=== PATIENT | female | born 1980 | race Caucasian/White ===

== ENCOUNTER 2018-07-05 14:30 | Inpatient (IN) | payer MEDICAID ==
[~2018-07-05] VITALS: Ht 170.2 cm; Wt 79.8 kg
[~2018-07-05 14:30] MED LIST: ONDA4TAB12 PO; PANT20TA2 PO; PHEN-716 PO
[2018-07-05 15:43] LABS: BASOPHILS # (AUTO) 0.1 X10'3 (0-0.2); EOSINOPHILS # (AUTO) 0.1 X10'3 (0-0.9); EOSINOPHILS % (AUTO) 1.7 % (0-6); HEMATOCRIT 47.2 % (35.0-45.0); HEMOGLOBIN 15.5 g/dl (12.0-16.0); LYMPHOCYTES # (AUTO) 1.9 X10'3 (1.1-4.8); MEAN CORPUSCULAR HGB CONC 32.8 g/dL (33.0-36.5); MEAN CORPUSCULAR VOLUME 94.3 FL (78-98); MEAN PLATELET VOLUME 8.4 FL (7.4-10.4); MONOCYTES # (AUTO) 0.4 X10'3 (0-0.9); MONOCYTES % (AUTO) 6.3 % (2-12); NEUTROPHILS # (AUTO) 4.6 X10'3 (1.8-7.7); PLATELET COUNT 282 X10'3 (140-440); RED CELL DISTRIBUTION WIDTH 12.6 % (11.5-14.5); WHITE BLOOD COUNT 7.1 X10'3 (4.5-11.0)
[2018-07-05 15:58] LABS: ALANINE AMINOTRANSFERASE 22 U/L (12-78); ALBUMIN 4.1 G/DL (3.4-5.0); ALBUMIN/GLOBULIN RATIO 1.2 (1.1-1.5); ALKALINE PHOSPHATASE 59 IU/L (46-116); ANION GAP 12 (8-16); ASPARTATE AMINO TRANSFERASE 27 U/L (10-37); BILIRUBIN,TOTAL 0.6 MG/DL (0.1-1.0); BLOOD UREA NITROGEN 7 MG/DL (7-18); BUN/CREATININE RATIO 9.9 (6.6-38.0); CALCIUM 9.1 MG/DL (8.5-10.1); CHLORIDE 102 MMOL/L (99-107); CREATININE 0.71 MG/DL (0.40-0.90); GLUCOSE 93 MG/DL (70-104); POTASSIUM 3.9 MMOL/L (3.5-5.1); SODIUM 139 MMOL/L (135-145); TOTAL CARBON DIOXIDE 25.3 MMOL/L (24-32); TOTAL PROTEIN 7.4 G/DL (6.4-8.2); eGFR > 90 ML/MIN
[2018-07-05 15:59] LABS: PARTIAL THROMBOPLASTIN TIME 26 SECONDS (22-32); PROTHROMBIN TIME 10.4 SECONDS (9.0-12.0)
[2018-07-05] MEDS ORDERED: NO HOME MEDS (16:46)
[2018-07-05 17:09] LABS: ETHANOL 0.028 GM/DL (0.0-0.010)
[2018-07-05] MEDS ORDERED: acetaminophen 325mg tablet PO ONE (17:15)
[2018-07-05 17:17] LABS: D-DIMER < 0.19 MG/L FEU (0-0.50)
[2018-07-05] MEDS ORDERED: acetaminophen 325mg tablet PO PRN (18:50)
[2018-07-05] MEDS ORDERED: potassium Cl 40MEQ/NS 500ml 500 ML IV PRN ×2 (18:50)
[2018-07-05] MEDS ORDERED: potassium Cl 20 mEq SR tablet PO PRN ×2 (18:50)
[2018-07-05] MEDS ORDERED: magnesium Cl slow-release 64mg tablet PO PRN (18:50)
[2018-07-05] MEDS ORDERED: mag hydrox/Alum hydrox/simeth 30ml oral suspension PO PRN (18:50)
[2018-07-05] MEDS ORDERED: magnesium hydroxide 30ml (MOM) UD suspension PO PRN (18:50)
[2018-07-05] MEDS ORDERED: ondansetron/PF 4mg/2ml inj IV PRN (18:50)
[2018-07-05] MEDS ORDERED: magnesium 2GM in 50ml NS 50 ML IV PRN (18:50)
[2018-07-05] MEDS ORDERED: magnesium 4gm in 100ml NS 100 ML IV PRN (18:50)
[2018-07-05 18:56] LABS: URINE HCG NEGATIVE (NEG)
[2018-07-05 19:07] LABS: URINE AMPHETAMINE SCREEN NEGATIVE (Neg); URINE BARBITUATE SCREEN NEGATIVE (Neg); URINE BENZODIAZEPINES SCREEN NEGATIVE (Neg); URINE CANNABINOID SCREEN NEGATIVE (Neg); URINE COCAINE SCREEN NEGATIVE (Neg); URINE METHADONE SCREEN NEGATIVE (Neg); URINE OPIATE SCREEN NEGATIVE (Neg); URINE PHENCYCLIDINE SCREEN NEGATIVE (Neg)
[2018-07-05] MEDS: aspirin 81mg tab.chew PO SCH (19:20)
[2018-07-05] MEDS: normal saline 1000ml 1,000 ML IV SCH (19:20)
[2018-07-05] MEDS: tirofiban 5mg in NS 100mL 100 ML IV SCH (19:44)
[2018-07-05] MEDS: carVEDilol 3.125mg tablet PO SCH (19:46)
[2018-07-05] MEDS: enoxaparin 80mg/0.8ml syringe SUBCUT SCH (19:46)
[2018-07-05] MEDS ORDERED: ibuprofen tablet 400 MG TABLET PO ONE (20:55)
[2018-07-06] VITALS (11 sets, daily range): BP systolic 104–129; BP diastolic 52–78
[2018-07-06 02:56] LABS: BASOPHILS % (AUTO) 0.7 % (0-1); EOSINOPHILS # (AUTO) 0.1 X10'3 (0-0.9); EOSINOPHILS % (AUTO) 2.1 % (0-6); HEMATOCRIT 43.3 % (35.0-45.0); HEMOGLOBIN 14.4 g/dl (12.0-16.0); LYMPHOCYTES # (AUTO) 2.5 X10'3 (1.1-4.8); MEAN CORPUSCULAR HEMOGLOBIN 31.6 PG (27.0-31.0); MEAN CORPUSCULAR HGB CONC 33.3 g/dL (33.0-36.5); MEAN CORPUSCULAR VOLUME 94.8 FL (78-98); MEAN PLATELET VOLUME 8.9 FL (7.4-10.4); MONOCYTES # (AUTO) 0.5 X10'3 (0-0.9); MONOCYTES % (AUTO) 7.5 % (2-12); NEUTROPHILS # (AUTO) 3.5 X10'3 (1.8-7.7); NEUTROPHILS % (AUTO) 51.7 % (42-75); PLATELET COUNT 235 X10'3 (140-440); RED BLOOD COUNT 4.57 X10'6 (4.20-5.60); RED CELL DISTRIBUTION WIDTH 12.4 % (11.5-14.5); WHITE BLOOD COUNT 6.6 X10'3 (4.5-11.0)
[2018-07-06 03:01] LABS: ALANINE AMINOTRANSFERASE 20 U/L (12-78); ALBUMIN 3.4 G/DL (3.4-5.0); ALBUMIN/GLOBULIN RATIO 1.3 (1.1-1.5); ALKALINE PHOSPHATASE 55 IU/L (46-116); ANION GAP 9 (8-16); ASPARTATE AMINO TRANSFERASE 23 U/L (10-37); BILIRUBIN,TOTAL 0.3 MG/DL (0.1-1.0); BLOOD UREA NITROGEN 8 MG/DL (7-18); BUN/CREATININE RATIO 11.3 (6.6-38.0); CALCIUM 8.3 MG/DL (8.5-10.1); CHLORIDE 105 MMOL/L (99-107); CREATININE 0.71 MG/DL (0.40-0.90); GLUCOSE 125 MG/DL (70-104); POTASSIUM 3.6 MMOL/L (3.5-5.1); SODIUM 139 MMOL/L (135-145); TOTAL CARBON DIOXIDE 25.4 MMOL/L (24-32); eGFR > 90 ML/MIN
[2018-07-06 03:05] LABS: MAGNESIUM 2.1 MG/DL (1.5-2.4)
[2018-07-06] MEDS: tirofiban 5mg in NS 100mL 100 ML IV SCH ×2 (03:10→08:37)
[2018-07-06 07:30] LABS: CHOLESTEROL 124 MG/DL (0-200); HDL CHOLESTEROL 31 MG/DL (35-60); LDL CHOLESTEROL 75 MG/DL (50-100); TRIGLYCERIDES 325 MG/DL (20-135)
--- NOTE | 2018-07-06 07:55 | NUR ---
Patient in room ED 9. I have received report from Tracy PEPPER and had the opportunity to ask questions,
[2018-07-06] MEDS: K and/or MAG REPLACEMENT MC SCH (08:00)
[2018-07-06] MEDS: enoxaparin 80mg/0.8ml syringe SUBCUT SCH (08:00)
--- NOTE | 2018-07-06 08:15 | NUR ---
Patient arrived from the ED, alert and oriented, vital signs stable. Ambulatory. Oriented to room and call light. Beamster Jurgen at bedside to take patient to fish farm laborer.
[2018-07-06] MEDS ORDERED: fentaNYL/PF 50MCG/1 ML 2ML syringe ONE ×2 (08:25→09:38)
[2018-07-06] MEDS ORDERED: LIDOcaine 1% (10mg/ml)w/preservative injection 20ml MDV ONE (08:25)
[2018-07-06] MEDS ORDERED: iohexol 350MG/ML 100ml bottle IV ONE ×3 (08:25→18:10)
[2018-07-06] MEDS ORDERED: midazolam 2 mg/2 ml injection ONE ×2 (08:25→09:38)
[2018-07-06] MEDS ORDERED: heparin 1,000unit/ml 10ml vial 10 ML ONE (08:53)
[2018-07-06] MEDS ORDERED: nitroGLYCERIN-Tridil 50MG/D5W 250 ML IV ONE (08:53)
[2018-07-06] MEDS ORDERED: verapamil 2.5 mg/ml inj IV ONE (08:53)
--- NOTE | 2018-07-06 10:00 | NUR ---
Patient returned from catheterization laboratory technician, with right radial access site with Vasc Band in place. Pulses palpable. Will continue to monitor patient closely.
[2018-07-06] MEDS ORDERED: proCHLORperazine 10 MG/2 ml inj IV PRN (10:15)
[2018-07-06] MEDS ORDERED: OXAZEpam 15mg capsule PO PRN (10:15)
[2018-07-06] MEDS ORDERED: clopidogrel 300mg tablet PO ONE (10:15)
[2018-07-06] MEDS ORDERED: aspirin 81mg tablet.DR PO ONE (10:15)
[2018-07-06] MEDS ORDERED: nitroGLYCERIN 0.4mg SUBLingual tab SL PRN (10:15)
--- NOTE | 2018-07-06 10:18 | NUR ---
RECEIVED NEW ORDERS FROM DR. BRUMFIELD: PATIENT STABLE TO DISCHARGE HOME @ 1500 F/U WITH OCTAVIANO IN 2 WEEKS, ASPIRIN 81MG NOW AND QD, PLAVIX 300MG PO NOW, THEN 75MG QD. WILL CONTINUE TO MONITOR
--- NOTE | 2018-07-06 10:34 | NUR ---
PAGER ID: [phone] MESSAGE: [phone]: SOLAR - returned from culture media laboratory assistant. hamida Gordon pt stable to d/c @ 1500 today. are you in agreement? nurse Sheridan patel [phone]
[2018-07-06] MEDS: atorvastatin 20mg tablet PO SCH (10:51)
[2018-07-06] MEDS: carVEDilol 3.125mg tablet PO SCH ×2 (10:52→20:32)
[2018-07-06] MEDS: aspirin 81mg tab.chew PO SCH (10:52)
[2018-07-06] MEDS: HYDROcodone/acetaminophen 5mg/325mg tablet PO PRN ×3 (12:11→23:16)
--- NOTE | 2018-07-06 14:46 | NUR ---
Patient complaining of chest pressure 6/10 and pain radiating to her left arm. Paged Dr Robertson. Getting stat EKG now.
[2018-07-06] MEDS: normal saline 1000ml 1,000 ML IV SCH (14:47)
--- NOTE | 2018-07-06 14:55 | NUR ---
EKG showed to Dr Robertson, normal sinus rhythm. She did not want to increase any pain medication orders at this time.
--- NOTE | 2018-07-06 15:30 | NUR ---
Patient asking to stay overnight to be monitored. She feels lightheaded from the new medications and is nervous about discharging. Dr Robertson notified and stated she can stay one night for observation.
--- NOTE | 2018-07-06 17:30 | NUR ---
Patient's right wrist Vasc Band has fully deflated and there is no evidence of active bleeding. Site looks great. Sterile gauze and tegaderm applied.
--- NOTE | 2018-07-06 18:10 | NUR ---
Patient in room MED 315. I have received report from Sheridan and had the opportunity to ask questions and assume patient care.
--- NOTE | 2018-07-06 18:55 | NUR ---
Problems reprioritized. Patient report given, questions answered & plan of care reviewed with Maldonado RN.
[2018-07-07 02:00] VITALS: BP 98/57
[2018-07-07 05:40] LABS: BASOPHILS % (AUTO) 0.4 % (0-1); EOSINOPHILS # (AUTO) 0.1 X10'3 (0-0.9); EOSINOPHILS % (AUTO) 2.3 % (0-6); HEMATOCRIT 40.3 % (35.0-45.0); HEMOGLOBIN 13.8 g/dl (12.0-16.0); LYMPHOCYTES % (AUTO) 30.9 % (21-51); MEAN CORPUSCULAR HEMOGLOBIN 32.5 PG (27.0-31.0); MEAN CORPUSCULAR HGB CONC 34.3 g/dL (33.0-36.5); MEAN CORPUSCULAR VOLUME 94.8 FL (78-98); MEAN PLATELET VOLUME 9.1 FL (7.4-10.4); MONOCYTES # (AUTO) 0.4 X10'3 (0-0.9); MONOCYTES % (AUTO) 6.6 % (2-12); NEUTROPHILS # (AUTO) 3.8 X10'3 (1.8-7.7); NEUTROPHILS % (AUTO) 59.8 % (42-75); PLATELET COUNT 216 X10'3 (140-440); RED BLOOD COUNT 4.25 X10'6 (4.20-5.60); RED CELL DISTRIBUTION WIDTH 12.3 % (11.5-14.5); WHITE BLOOD COUNT 6.3 X10'3 (4.5-11.0)
[2018-07-07 05:47] LABS: ALANINE AMINOTRANSFERASE 18 U/L (12-78); ALBUMIN 3.1 G/DL (3.4-5.0); ALBUMIN/GLOBULIN RATIO 1.2 (1.1-1.5); ALKALINE PHOSPHATASE 54 IU/L (46-116); ANION GAP 11 (8-16); ASPARTATE AMINO TRANSFERASE 14 U/L (10-37); BILIRUBIN,TOTAL 0.3 MG/DL (0.1-1.0); BLOOD UREA NITROGEN 6 MG/DL (7-18); BUN/CREATININE RATIO 9.7 (6.6-38.0); CALCIUM 7.9 MG/DL (8.5-10.1); CHLORIDE 105 MMOL/L (99-107); CREATININE 0.62 MG/DL (0.40-0.90); MAGNESIUM 1.9 MG/DL (1.5-2.4); SODIUM 138 MMOL/L (135-145); TOTAL PROTEIN 5.7 G/DL (6.4-8.2); eGFR > 90 ML/MIN
[2018-07-07 05:49] LABS: GLUCOSE 103 MG/DL (70-104); POTASSIUM 3.7 MMOL/L (3.5-5.1)
[2018-07-07 06:00] VITALS: BP 104/60
--- NOTE | 2018-07-07 06:30 | NUR ---
Patient in room MED 315. I have received report from Milad PEPPER and had the opportunity to ask questions and assume patient care.
[2018-07-07] MEDS: K and/or MAG REPLACEMENT MC SCH (08:00)
[2018-07-07] MEDS ORDERED: clopidogrel 75mg tablet PO SCH (08:00)
[2018-07-07] MEDS ORDERED: aspirin 81mg tablet.DR PO SCH (08:00)
[2018-07-07] MEDS: atorvastatin 20mg tablet PO SCH (08:12)
[2018-07-07] MEDS: aspirin 81mg tab.chew PO SCH (08:14)
[2018-07-07] MEDS: carVEDilol 3.125mg tablet PO SCH (09:11)
[2018-07-07] MEDS ORDERED: ATOR20TA66 PO (09:23)
[2018-07-07] MEDS ORDERED: ASPI-1265 PO (09:23)
[2018-07-07] MEDS ORDERED: CLOP75TA35 PO (09:23)
[2018-07-07] MEDS ORDERED: COR3.125T PO (09:23)
--- NOTE | 2018-07-07 09:53 | NUR ---
NEW MEDICATION PRESCRIPTIONS CALLED INTO [facility].
--- NOTE | 2018-07-07 10:29 | NUR ---
discharge education provided, and all questions answered. pt removed from shelter monitor and awaiting ride.
[2018-07-07] MEDS: normal saline 1000ml 1,000 ML IV SCH (10:47)
--- NOTE | 2018-07-07 11:45 | NUR ---
pt's IV removed; cannula intact. pt wheeled to lobby with all belongings.
== END 2018-07-07 11:45 | disposition home or self-care (01) | DRG 190 ==
LOC: ER 14:31 → ED HOLD 18:47 → MED 3N 07-06 08:17
PROVIDERS: ADMIT Internal Medicine; ATTEND Internal Medicine
PROC: 4A023N7 Measurement of Cardiac Sampling and Pressure, Left Heart, Percutaneous Approach (ICD-10-PCS; principal; 2018-07-06)
PROC: B2111ZZ Fluoroscopy of Multiple Coronary Arteries using Low Osmolar Contrast (ICD-10-PCS; 2018-07-06)
PROC: B2151ZZ Fluoroscopy of Left Heart using Low Osmolar Contrast (ICD-10-PCS; 2018-07-06)
PROC: B32T1ZZ Computerized Tomography (CT Scan) of Left Pulmonary Artery using Low Osmolar Contrast (ICD-10-PCS; 2018-07-06)
PROC: B3201ZZ Computerized Tomography (CT Scan) of Thoracic Aorta using Low Osmolar Contrast (ICD-10-PCS; 2018-07-06)
PROC: B32S1ZZ Computerized Tomography (CT Scan) of Right Pulmonary Artery using Low Osmolar Contrast (ICD-10-PCS; 2018-07-06)
DX: I21.4 Non-ST elevation (NSTEMI) myocardial infarction (principal); E78.1 Pure hyperglyceridemia; R21 Rash and other nonspecific skin eruption; Z98.891 History of uterine scar from previous surgery; Z87.440 Personal history of urinary (tract) infections; Z79.899 Other long term (current) drug therapy; Z72.89 Other problems related to lifestyle
CPT/HCPCS: 36415; 71045; 71275; 80053; 80061; 80305; 80320; 81025; 83735; 84484; 85025; 85379; 85610; 85730; 87070; 93005; 93306; 93458; 99152; 99153; 99285; A4620; A6257; C1725; C1769; G0378; J1644; J1650; J2001; J2250; J3010; J3246; J3490; J7030; Q9967

== ENCOUNTER 2018-10-11 21:23 | Emergency (ER) | payer MEDICAID ==
[~2018-10-11] VITALS: Ht 172.7 cm; Wt 70.4 kg
[~2018-10-11 21:23] MED LIST changes: +ASPI-1265 PO; +ATOR20TA66 PO; +CLOP75TA35 PO; +COR3.125T PO; -ONDA4TAB12 PO; -PANT20TA2 PO; -PHEN-716 PO
[2018-10-11 22:07] LABS: BASOPHILS % (AUTO) 0.5 % (0-1); EOSINOPHILS # (AUTO) 0.1 X10'3 (0-0.9); EOSINOPHILS % (AUTO) 0.9 % (0-6); HEMATOCRIT 41.3 % (35.0-45.0); HEMOGLOBIN 14.3 g/dl (12.0-16.0); LYMPHOCYTES # (AUTO) 1.9 X10'3 (1.1-4.8); LYMPHOCYTES % (AUTO) 26.8 % (21-51); MEAN CORPUSCULAR HEMOGLOBIN 32.6 PG (27.0-31.0); MEAN CORPUSCULAR HGB CONC 34.6 g/dL (33.0-36.5); MEAN CORPUSCULAR VOLUME 94.1 FL (78-98); MEAN PLATELET VOLUME 8.9 FL (7.4-10.4); MONOCYTES # (AUTO) 0.5 X10'3 (0-0.9); MONOCYTES % (AUTO) 7.4 % (2-12); NEUTROPHILS # (AUTO) 4.7 X10'3 (1.8-7.7); NEUTROPHILS % (AUTO) 64.4 % (42-75); PLATELET COUNT 201 X10'3 (140-440); RED BLOOD COUNT 4.38 X10'6 (4.20-5.60); RED CELL DISTRIBUTION WIDTH 12.8 % (11.5-14.5); WHITE BLOOD COUNT 7.3 X10'3 (4.5-11.0)
[2018-10-11 22:18] LABS: ALANINE AMINOTRANSFERASE 34 U/L (12-78); ALBUMIN 3.9 G/DL (3.4-5.0); ALBUMIN/GLOBULIN RATIO 1.3 (1.1-1.5); ALKALINE PHOSPHATASE 59 IU/L (46-116); ANION GAP 7 (8-16); ASPARTATE AMINO TRANSFERASE 17 U/L (10-37); BILIRUBIN,TOTAL 0.6 MG/DL (0.1-1.0); BLOOD UREA NITROGEN 8 MG/DL (7-18); BUN/CREATININE RATIO 10.5 (6.6-38.0); CALCIUM 8.7 MG/DL (8.5-10.1); CHLORIDE 104 MMOL/L (99-107); CREATININE 0.76 MG/DL (0.40-0.90); GLUCOSE 88 MG/DL (70-104); POTASSIUM 3.3 MMOL/L (3.5-5.1); SODIUM 140 MMOL/L (135-145); TOTAL CARBON DIOXIDE 29.2 MMOL/L (24-32); eGFR 85 ML/MIN
[2018-10-11 22:19] LABS: PARTIAL THROMBOPLASTIN TIME 27 SECONDS (22-32)
[2018-10-11] MEDS ORDERED: potassium Cl oral solution 20 MEQ/15 ML PO ONE (22:50)
[2018-10-11 23:23] LABS: URINE HCG NEGATIVE (NEG)
[2018-10-11 23:25] LABS: CLARITY,URINE SLIGHTLY CLOUDY (Clear); COLOR,URINE YELLOW (Yellow); GLUCOSE, URINE NEGATIVE (Neg); KETONES,URINE NEGATIVE (Neg); LEUKOCYTE ESTERASE ,URINE NEGATIVE (Neg); NITRITES, URINE NEGATIVE (Neg); OCCULT BLOOD,URINE TRACE-INTACT (Neg); PH,URINE 6.5 (4.8-8.0); PROTEIN,URINE NEGATIVE (Neg); UROBILINOGEN,URINE 0.2 E.U/dL (0.2-1.0)
[2018-10-11 23:27] LABS: UA COLLECTION TYPE VOIDED
[2018-10-11 23:34] LABS: BACTERIA,URINE FEW /HPF (Neg); RBC,URINE 0-2 /HPF (0-2); SQUAMOUS EPITHELIAL CELL,UR FEW /LPF (FEW); WBC,URINE 0-4 /HPF (0-4)
[2018-10-11 23:57] VITALS: BP 108/71
== END 2018-10-11 23:59 | disposition home or self-care (01) ==
LOC: ER 21:23
DX: R07.89 Other chest pain (principal); R53.1 Weakness; I25.10 Atherosclerotic heart disease of native coronary artery without angina pectoris; I25.2 Old myocardial infarction; Z79.82 Long term (current) use of aspirin; Z79.899 Other long term (current) drug therapy; Z98.890 Other specified postprocedural states
CPT/HCPCS: 36415; 71045; 80053; 81001; 81025; 84443; 84484; 85025; 85610; 85730; 93005; 99284

== ENCOUNTER 2019-05-10 14:11 | Emergency (ER) | payer MEDICAID ==
[~2019-05-10] VITALS: Ht 172.7 cm; Wt 73.0 kg
[2019-05-10 15:06] LABS: BASOPHILS % (AUTO) 0.5 % (0-1); EOSINOPHILS % (AUTO) 0.3 % (0-6); HEMATOCRIT 39.2 % (35.0-45.0); HEMOGLOBIN 13.5 g/dl (12.0-16.0); LYMPHOCYTES # (AUTO) 1.4 X10'3 (1.1-4.8); LYMPHOCYTES % (AUTO) 26.1 % (21-51); MEAN CORPUSCULAR HEMOGLOBIN 32.4 PG (27.0-31.0); MEAN CORPUSCULAR HGB CONC 34.3 g/dL (33.0-36.5); MEAN CORPUSCULAR VOLUME 94.5 FL (78-98); MEAN PLATELET VOLUME 8.5 FL (7.4-10.4); MONOCYTES # (AUTO) 0.3 X10'3 (0-0.9); NEUTROPHILS # (AUTO) 3.5 X10'3 (1.8-7.7); NEUTROPHILS % (AUTO) 67.1 % (42-75); PLATELET COUNT 217 X10'3 (140-440); RED BLOOD COUNT 4.15 X10'6 (4.20-5.60); RED CELL DISTRIBUTION WIDTH 13.5 % (11.5-14.5); WHITE BLOOD COUNT 5.3 X10'3 (4.5-11.0)
[2019-05-10 15:24] LABS: ALANINE AMINOTRANSFERASE 19 U/L (12-78); ALBUMIN/GLOBULIN RATIO 1.4 (1.1-1.5); ALKALINE PHOSPHATASE 52 IU/L (46-116); ANION GAP 4 (8-16); ASPARTATE AMINO TRANSFERASE 14 U/L (10-37); BILIRUBIN,TOTAL 0.7 MG/DL (0.1-1.0); BLOOD UREA NITROGEN 8 MG/DL (7-18); BUN/CREATININE RATIO 9.6 (6.6-38.0); CHLORIDE 105 MMOL/L (99-107); CREATININE 0.83 MG/DL (0.40-0.90); GLUCOSE 80 MG/DL (70-104); POTASSIUM 3.9 MMOL/L (3.5-5.1); SODIUM 140 MMOL/L (135-145); TOTAL CARBON DIOXIDE 30.7 MMOL/L (24-32); TOTAL PROTEIN 6.9 G/DL (6.4-8.2); eGFR 76 ML/MIN
[2019-05-10 19:01] VITALS: BP 108/60
== END 2019-05-10 19:02 | disposition home or self-care (01) ==
LOC: ER 14:12
DX: R07.89 Other chest pain (principal); I25.10 Atherosclerotic heart disease of native coronary artery without angina pectoris; I25.2 Old myocardial infarction; Z98.890 Other specified postprocedural states; Z79.82 Long term (current) use of aspirin; Z79.899 Other long term (current) drug therapy; Z95.5 Presence of coronary angioplasty implant and graft
CPT/HCPCS: 36415; 80053; 84484; 85025; 93005; 99284

== ENCOUNTER 2019-09-04 15:35 | Emergency (ER) | payer MEDICAID ==
[~2019-09-04] VITALS: Ht 162.6 cm; Wt 74.0 kg
[2019-09-04 16:13] LABS: BASOPHILS % (AUTO) 0.4 % (0-1); EOSINOPHILS # (AUTO) 0.1 X10'3 (0-0.9); HEMATOCRIT 42.4 % (35.0-45.0); HEMOGLOBIN 14.4 g/dl (12.0-16.0); LYMPHOCYTES # (AUTO) 1.4 X10'3 (1.1-4.8); LYMPHOCYTES % (AUTO) 26.4 % (21-51); MEAN CORPUSCULAR HEMOGLOBIN 32.1 PG (27.0-31.0); MEAN CORPUSCULAR HGB CONC 33.9 g/dL (33.0-36.5); MEAN CORPUSCULAR VOLUME 94.5 FL (78-98); MEAN PLATELET VOLUME 8.5 FL (7.4-10.4); MONOCYTES # (AUTO) 0.3 X10'3 (0-0.9); MONOCYTES % (AUTO) 6.5 % (2-12); NEUTROPHILS # (AUTO) 3.5 X10'3 (1.8-7.7); NEUTROPHILS % (AUTO) 65.7 % (42-75); PLATELET COUNT 211 X10'3 (140-440); RED BLOOD COUNT 4.49 X10'6 (4.20-5.60); RED CELL DISTRIBUTION WIDTH 13.1 % (11.5-14.5); WHITE BLOOD COUNT 5.3 X10'3 (4.5-11.0)
[2019-09-04 16:26] LABS: PARTIAL THROMBOPLASTIN TIME 25 SECONDS (22-32)
[2019-09-04 16:30] LABS: ALANINE AMINOTRANSFERASE 17 U/L (12-78); ALBUMIN 3.8 G/DL (3.4-5.0); ALBUMIN/GLOBULIN RATIO 1.3 (1.1-1.5); ALKALINE PHOSPHATASE 51 IU/L (46-116); ANION GAP 6 (8-16); ASPARTATE AMINO TRANSFERASE 14 U/L (10-37); BILIRUBIN,TOTAL 0.4 MG/DL (0.1-1.0); BLOOD UREA NITROGEN 10 MG/DL (7-18); CALCIUM 9.3 MG/DL (8.5-10.1); CHLORIDE 107 MMOL/L (99-107); CREATININE 0.83 MG/DL (0.40-0.90); GLUCOSE 121 MG/DL (70-104); POTASSIUM 3.8 MMOL/L (3.5-5.1); SODIUM 142 MMOL/L (135-145); TOTAL CARBON DIOXIDE 29.1 MMOL/L (24-32); TOTAL PROTEIN 6.8 G/DL (6.4-8.2); eGFR 76 ML/MIN
[2019-09-04 18:55] VITALS: BP 117/72
[2019-09-04] MEDS ORDERED: acetaminophen 325mg tablet PO ONE (19:05)
== END 2019-09-04 19:37 | disposition home or self-care (01) ==
LOC: ER 15:36
DX: R07.9 Chest pain, unspecified (principal); R06.02 Shortness of breath; I25.10 Atherosclerotic heart disease of native coronary artery without angina pectoris; I25.2 Old myocardial infarction; Z87.440 Personal history of urinary (tract) infections; Z98.890 Other specified postprocedural states; Z79.82 Long term (current) use of aspirin; Z79.899 Other long term (current) drug therapy
CPT/HCPCS: 36415; 71045; 80053; 84484; 85025; 85610; 85730; 93005; 99285

== ENCOUNTER 2021-03-09 08:17 | Emergency (ER) | payer MEDICAID ==
[~2021-03-09] VITALS: Ht 172.7 cm; Wt 77.3 kg
[~2021-03-09 08:17] MED LIST changes: +CLOP75TA34 PO; -CLOP75TA35 PO
[2021-03-09 09:02] LABS: BASOPHILS % (AUTO) 0.6 % (0-1); EOSINOPHILS % (AUTO) 0.6 % (0-6); HEMATOCRIT 42.6 % (35.0-45.0); HEMOGLOBIN 14.7 g/dl (12.0-16.0); LYMPHOCYTES # (AUTO) 1.6 X10'3 (1.1-4.8); MEAN CORPUSCULAR HEMOGLOBIN 32.5 PG (27.0-31.0); MEAN CORPUSCULAR HGB CONC 34.6 g/dL (33.0-36.5); MEAN CORPUSCULAR VOLUME 94.1 FL (78-98); MEAN PLATELET VOLUME 8.2 FL (7.4-10.4); MONOCYTES # (AUTO) 0.5 X10'3 (0-0.9); MONOCYTES % (AUTO) 6.2 % (2-12); NEUTROPHILS # (AUTO) 5.5 X10'3 (1.8-7.7); NEUTROPHILS % (AUTO) 71.6 % (42-75); PLATELET COUNT 216 X10'3 (140-440); RED BLOOD COUNT 4.53 X10'6 (4.20-5.60); RED CELL DISTRIBUTION WIDTH 13.2 % (11.5-14.5); WHITE BLOOD COUNT 7.7 X10'3 (4.5-11.0)
[2021-03-09 09:53] LABS: ANION GAP 6 (8-16); BILIRUBIN,TOTAL 0.7 MG/DL (0.1-1.0); BLOOD UREA NITROGEN 11 MG/DL (7-18); BUN/CREATININE RATIO 12.9 (6.6-38.0); CALCIUM 8.7 MG/DL (8.5-10.1); CHLORIDE 106 MMOL/L (99-107); CREATININE 0.85 MG/DL (0.40-0.90); GLUCOSE 98 MG/DL (70-104); POTASSIUM 3.8 MMOL/L (3.5-5.1); SODIUM 140 MMOL/L (135-145); TOTAL CARBON DIOXIDE 27.6 MMOL/L (24-32); TOTAL PROTEIN 6.8 G/DL (6.4-8.2); eGFR 73 ML/MIN
[2021-03-09 09:54] LABS: ALANINE AMINOTRANSFERASE 24 U/L (12-78); ALBUMIN 3.7 G/DL (3.4-5.0); ALBUMIN/GLOBULIN RATIO 1.2 (1.1-1.5); ALKALINE PHOSPHATASE 63 IU/L (46-116); ASPARTATE AMINO TRANSFERASE 16 U/L (10-37)
[2021-03-09] MEDS ORDERED: NITR0.4T51 SL (11:42)
[2021-03-09 12:19] VITALS: BP 113/65
== END 2021-03-09 12:21 | disposition home or self-care (01) ==
LOC: ER 08:18
DX: I24.9 Acute ischemic heart disease, unspecified (principal); R07.89 Other chest pain; R53.1 Weakness; M54.89 Other dorsalgia; I25.10 Atherosclerotic heart disease of native coronary artery without angina pectoris; I25.2 Old myocardial infarction; Z87.440 Personal history of urinary (tract) infections; Z98.890 Other specified postprocedural states; Z79.82 Long term (current) use of aspirin; Z79.899 Other long term (current) drug therapy
CPT/HCPCS: 36415; 71045; 80053; 83880; 84484; 85025; 93005; 99285